=== PATIENT | female | born 1970 | race Caucasian/White ===

== ENCOUNTER → 2016-07-27 | Outpatient (CLI) | payer OTHER ==
[~2016-07-27] VITALS: Ht 61 cm; Wt 94.8 kg
[~2016-07-27] MED LIST: CLAR1TAB2 PO; GLYCOPYRROLATE INJ 0.2 MG/ML 2 ML VIAL As Ordered ONE; LIDOCAINE 2% INJ 100 MG/5 ML SDV (FOR ANES.) As Ordered ONE; NEXI40CA PO; NS 1,000 ML IV SCH; PROPOFOL 200 MG/20 ML VIAL As Ordered ONE; [UNRECOGNIZED DRUG - CODE] PO
--- NOTE | 2016-07-27 11:03 | ROOR ---
Patient Name: Patricia Cast Procedure Date: 07/27/2016 10:45 AM Date of : 1970 Age: 46 Room: [facility] Gender: Female Note Status: Finalized Procedure: Upper GI endoscopy Indications: Generalized abdominal pain, Early satiety Providers: Jake Ruiz MD Referring MD: NIKUNJ CALVIN MD Requesting Provider: Medicines: Monitored Anesthesia Care Complications: No immediate complications. Procedure: Pre-Anesthesia Assessment: - The heart rate, respiratory rate, oxygen saturations, blood pressure, adequacy of pulmonary ventilation, and response to care were monitored throughout the procedure. The Endoscope was introduced through the mouth, and advanced to the second part of duodenum. The upper GI endoscopy was accomplished without difficulty. The patient tolerated the procedure well. Findings: The Z-line was irregular and was found 38 cm from the incisors. A small hiatal hernia was present. A medium amount of food (residue) was found in the gastric body. The exam of the duodenum was otherwise normal. Impression: - Z-line irregular, 38 cm from the incisors. - Small hiatal hernia. - A medium amount of food (residue) in the stomach. - No specimens collected. - The examination was otherwise normal. Recommendation: - Patient has a contact number available for emergencies. The signs and symptoms of potential delayed complications were discussed with the patient. Return to normal activities tomorrow. Written discharge instructions were provided to the patient. - Low fiber diet. - Discharge patient to home. - Use metoclopramide 5 mg PO QID; 30 min AC and HS for 1 month. - Return to referring physician. - The findings and recommendations were discussed with the patient's family. Jake Ruiz MD Jake Ruiz MD 07/27/2016 11:02:30 AM This report has been signed electronically. Number of Addenda: 0 Note Initiated On: 07/27/2016 10:45 AM Estimated Blood Loss: Estimated blood loss: none.
[2016-07-27 11:30] VITALS: BP 152/77
== END | disposition home or self-care (01) ==
LOC: M OPP 09:44
PROVIDERS: ATTEND Internal Medicine Gastroenterology
DX: K22.8 Other specified diseases of esophagus (principal); K44.9 Diaphragmatic hernia without obstruction or gangrene; R68.81 Early satiety; R10.84 Generalized abdominal pain; Z88.1 Allergy status to other antibiotic agents; Z88.2 Allergy status to sulfonamides; Z88.8 Allergy status to other drugs, medicaments and biological substances; R12 Heartburn; D64.9 Anemia, unspecified; Z79.899 Other long term (current) drug therapy

== ENCOUNTER → 2016-08-07 | Outpatient (CLI) | payer OTHER ==
[~2016-08-07] MED LIST changes: +GASTROGRAFIN SOLUTION 30ML (Q9963) As Ordered ONE; -GLYCOPYRROLATE INJ 0.2 MG/ML 2 ML VIAL As Ordered ONE; +ISOVUE-370 76% 100ML VIAL (Q9967) As Ordered ONE; -LIDOCAINE 2% INJ 100 MG/5 ML SDV (FOR ANES.) As Ordered ONE; -NS 1,000 ML IV SCH; -PROPOFOL 200 MG/20 ML VIAL As Ordered ONE
--- NOTE | 2016-08-07 21:00 | REP ---
CT ABDOMEN AND PELVIS WITH AND WITHOUT CONTRAST: TECHNIQUE: Axial noncontrast images through the abdomen followed by contrast-enhanced images through the abdomen and pelvis using 100 mL Isovue 370 intravenous contrast material, with coronal and sagittal reformations. The visualized lung bases are clear. The liver demonstrates relatively diffuse fatty infiltration with areas of sparing along the andrew hepatitis. There appears to be a small portion of the left lobe of the liver which extends above the stomach in the region of the fundus of the stomach. At this location there appears to be a small portion also extending superiorly through the diaphragmatic hiatus. This small portion of liver extending through the esophageal hiatus has a somewhat nodular appearance and measures 2.2 x 2.3 x 2.5 cm. This appears to have the same density as the other adjacent portions of the liver. This appears to represent an uncommon anatomic variant and likely does not represent a mass. The spleen, adrenals, pancreas and kidneys are otherwise normal in appearance. There is no hydronephrosis. There is no abdominal aortic aneurysm. There is no free air or free fluid. There is no bowel wall thickening. The patient has had prior surgery at the gastroesophageal junction, probably fundoplication and there are two metallic clips just inferior to this in the posterior upper abdomen in the midline. No pelvic mass is seen. The appendix is normal. The urinary bladder is mildly distended and grossly unremarkable. There are small bilateral inguinal hernias containing fat. IMPRESSION: Fatty infiltration of the liver. Soft tissue which appears to be contiguous with the left lobe of the liver appears to herniate through the esophageal hiatus on images of all three planes. This has the same density as adjacent liver and probably represents an anatomic variant of herniation of a small portion of the liver through the esophageal hiatus. This is directly anterior to the distal esophagus and could be causing dysphagia. There are small bilateral inguinal hernias containing fat. Signed by Jones Zelaya MD 08/08/2016 07:56 P
== END ==
LOC: M RAD 16:04
PROVIDERS: ATTEND Internal Medicine Gastroenterology
DX: R10.13 Epigastric pain (principal); R68.81 Early satiety; K76.0 Fatty (change of) liver, not elsewhere classified; K40.20 Bilateral inguinal hernia, without obstruction or gangrene, not specified as recurrent
CPT/HCPCS: 74178; Q9963; Q9967

== ENCOUNTER → 2016-09-11 | Outpatient (CLI) | payer OTHER ==
[~2016-09-11] MED LIST changes: -GASTROGRAFIN SOLUTION 30ML (Q9963) As Ordered ONE; -ISOVUE-370 76% 100ML VIAL (Q9967) As Ordered ONE
--- NOTE | 2016-09-11 09:57 | REP ---
Gastric emptying nuclear scintigraphy: History: Epigastric pain with early satiety. Technique: 0.925 mCi of technetium-99m sulfur colloid was ingested in two scrambled eggs and 6 ounces of water and sequential anterior and posterior images are acquired for an 89-minute imaging observation period. Regions of interest are drawn around the stomach to plot gastric emptying. Scintigraphic findings: Expected T1/2 is 90 minutes. 71 % emptying is observed in this patient during the 89-minute imaging observation period, for a calculated T1/2 in this patient of 68 minutes. Impression: Normal gastric emptying. Signed by Matthew Burnett MD 09/11/2016 09:48 A
== END ==
LOC: M RAD 07:45
PROVIDERS: ATTEND Surgery
DX: R10.13 Epigastric pain (principal); R68.81 Early satiety

== ENCOUNTER → 2017-03-05 | Outpatient (CLI) | payer OTHER ==
--- NOTE | 2017-03-05 11:30 | REP ---
RIGHT 5TH TOE, FOUR VIEWS: There is no evidence of an acute fracture, dislocation or intrinsic bone disease. IMPRESSION: No fracture or dislocation. Signed by Jones Zelaya MD 03/05/2017 05:17 P
== END ==
LOC: M LRY 10:28
PROVIDERS: ATTEND Physician Assistant
DX: M79.674 Pain in right toe(s) (principal)

== ENCOUNTER → 2018-07-19 | Outpatient (REF) | payer OTHER ==
[2018-07-22 16:13] LABS: HPV HYBRID CAPTURE II Negative (Negative)
== END ==
LOC: M SFHCWAGY 14:41
PROVIDERS: ATTEND Nurse Practitioner Women's Health
DX: Z12.4 Encounter for screening for malignant neoplasm of cervix (principal); Z11.51 Encounter for screening for human papillomavirus (HPV)
CPT/HCPCS: 87624; G0123; G0463

== ENCOUNTER 2018-11-17 09:17 | Emergency (ER) | payer OTHER ==
[~2018-11-17] VITALS: Ht 157.5 cm; Wt 96.6 kg
[2018-11-17] MEDS ORDERED: OMEP-218 (09:23)
[2018-11-17] MEDS ORDERED: METF500T13 (09:23)
[2018-11-17] MEDS ORDERED: PROAAER10 (09:23)
[2018-11-17] MEDS ORDERED: LEVALBUTEROL 1.25 MG/0.5 ML CONCENTRATE NEB INH PRN (09:45)
--- NOTE | 2018-11-17 10:07 | REP ---
Chest two views HISTORY: Cough Comparison: None The lungs are clear. The heart is normal in size. The pulmonary vasculature is normal in appearance. The bony structure is intact. IMPRESSION: No acute disease. Electronically Signed by Caden Chandler MD 11/17/2018 09:59 A
[2018-11-17] MEDS ORDERED: AUGMENTIN 875 MG TAB PO ONE (10:15)
[2018-11-17] MEDS ORDERED: AUGM875T28 PO (10:18)
[2018-11-17] MEDS ORDERED: MUCI600T31 PO (10:18)
[2018-11-17] MEDS ORDERED: PRED20TA PO (10:18)
[2018-11-17 10:22] VITALS: BP 124/80
== END 2018-11-17 10:24 | disposition home or self-care (01) ==
LOC: M ED 09:17
DX: J20.9 Acute bronchitis, unspecified (principal); J01.90 Acute sinusitis, unspecified; Z79.899 Other long term (current) drug therapy; Z88.1 Allergy status to other antibiotic agents; Z88.2 Allergy status to sulfonamides

== ENCOUNTER → 2018-12-06 | Outpatient (REF) | payer OTHER ==
[~2018-12-06] MED LIST changes: +AUGM875T28 PO; +METF500T13; +MUCI600T31 PO; +OMEP-218; +PRED20TA PO; +PROAAER10
== END ==
LOC: M SFHCLERA 18:29
PROVIDERS: ATTEND Nurse Practitioner Family
DX: R30.0 Dysuria (principal)

== ENCOUNTER → 2023-12-13 | Outpatient (CLI) | payer OTHER ==
[~2023-12-13] MED LIST changes: +OMEP-173; -OMEP-218
== END ==
LOC: M WHC 13:14
PROVIDERS: ATTEND Student in an Organized Health Care Education/Training Program
DX: N63.0 Unspecified lump in unspecified breast (principal)
CPT/HCPCS: 77066; G0279

== ENCOUNTER → 2025-05-22 | Outpatient (CLI) | payer OTHER | LOC: M WHC 09:27 | PROVIDERS: ATTEND Student in an Organized Health Care Education/Training Program | DX: Z12.31 Encounter for screening mammogram for malignant neoplasm of breast (principal); R92.323 Mammographic fibroglandular density, bilateral breasts ==